=== PATIENT | female | born 1980 | race Caucasian/White ===

== ENCOUNTER 2017-08-05 20:23 | Emergency (ER) | payer OTHER ==
[2017-08-05] MEDS: MUPIROCIN 2% 22 GM OINT TOP (22:27)
== END 2017-08-05 23:25 | disposition home or self-care (01) ==
LOC: FTE 20:23
DX: L02.211 Cutaneous abscess of abdominal wall (principal)
CPT/HCPCS: 10061; 99283-25

== ENCOUNTER 2017-09-21 23:04 | Emergency (ER) | payer OTHER ==
[2017-09-22] MEDS: DIPHENHYDRAMINE 25 MG CAP PO (00:45)
[2017-09-22 00:50] LABS: ADD MAN DIFF? NO
[2017-09-22 01:18] LABS: WHITE BLOOD COUNT 15.8 10^3/ul (4.8-10.8)
[2017-09-22 01:18] LABS: ABNORMAL IP MESSAGE 1; BASOPHIL # 0.1 10^3/ul (0.0-0.1); BASOPHILS % 0.8 % (0.0-2.0); EOSINOPHILS % 25.4 % (0.0-7.0); HEMATOCRIT 45.5 % (37.0-47.0); HEMOGLOBIN 14.5 g/dl (12.0-16.0); LYMPHOCYTES % 25.3 % (15.0-51.0); MEAN CORPUSCULAR HEMOGLOBIN 25.3 pg (29.0-33.0); MEAN CORPUSCULAR HGB CONC 31.9 g/dl (32.0-37.0); MEAN CORPUSCULAR VOLUME 79.3 fl (82.0-101.0); MEAN PLATELET VOLUME 13.9 fl (7.4-10.4); MONOCYTE # 1.6 10^3/ul (0.3-0.9); MONOCYTES % 10.2 % (0.0-11.0); NEUTROPHILS % 37.9 % (39.0-77.0); PLATELET COUNT 93 10^3/UL (140-415); RED BLOOD COUNT 5.74 10^6/ul (4.20-5.40); RED CELL DISTRIBUTION WIDTH 14.6 % (11.5-14.5)
[2017-09-22 01:27] LABS: POSITIVE DIFF @See below
[2017-09-22 01:30] LABS: ALANINE AMINOTRANSFERASE 43 IU/L (13-69); ALBUMIN 3.8 g/dl (3.3-4.9); ALBUMIN/GLOBULIN RATIO 1.52; ALKALINE PHOSPHATASE 125 IU/L (42-121); ANION GAP 16 (8-16); ASPARTATE AMINO TRANSFERASE 19 IU/L (15-46); BILIRUBIN,INDIRECT 0.2 mg/dl (0-1.1); BILIRUBIN,TOTAL 0.2 mg/dl (0.2-1.3); BLOOD UREA NITROGEN 11 mg/dl (7-20); CALCIUM 9.1 mg/dl (8.4-10.2); CARBON DIOXIDE 25 mmol/L (21-31); CHLORIDE 102 mmol/L (97-110); CREATININE 0.47 mg/dl (0.44-1.00); GLUCOSE 315 mg/dl (70-220); POTASSIUM 3.9 mmol/L (3.5-5.1); SODIUM 139 mmol/L (135-144); TOTAL PROTEIN 6.3 g/dl (6.1-8.1)
== END 2017-09-22 02:25 | disposition home or self-care (01) ==
LOC: FTE 23:04
DX: L50.9 Urticaria, unspecified (principal); R73.9 Hyperglycemia, unspecified
CPT/HCPCS: 36415; 80053; 85025; 99284

== ENCOUNTER 2017-11-02 18:38 | Emergency (ER) | payer OTHER ==
[2017-11-02 20:49] LABS: URINE BLOOD (Dip) POC Negative (NEGATIVE); URINE KETONES (Dip) POC Trace (NEGATIVE); URINE LEUKOCYTE EST (Dip) POC Negative (NEGATIVE); URINE NITRITE (Dip) POC Negative (NEGATIVE); URINE TOTAL PROTEIN POC 1+ (NEGATIVE)
[2017-11-02 21:20] LABS: ADD MAN DIFF? NO
[2017-11-02] MEDS: morphine 4 MG/ML VIAL IV (21:21)
[2017-11-02] MEDS: ONDANSETRON 4 MG INJ IV (21:21)
[2017-11-02 21:22] LABS: ABNORMAL IP MESSAGE 1; BASOPHIL # 0.1 10^3/ul (0.0-0.1); BASOPHILS % 0.8 % (0.0-2.0); EOSINOPHILS % 22.1 % (0.0-7.0); HEMATOCRIT 47.8 % (37.0-47.0); HEMOGLOBIN 15.5 g/dl (12.0-16.0); LYMPHOCYTES # 4.3 10^3/ul (0.8-2.9); LYMPHOCYTES % 23.9 % (15.0-51.0); MEAN CORPUSCULAR HEMOGLOBIN 25.9 pg (29.0-33.0); MEAN CORPUSCULAR HGB CONC 32.4 g/dl (32.0-37.0); MEAN CORPUSCULAR VOLUME 79.8 fl (82.0-101.0); MEAN PLATELET VOLUME 13.5 fl (7.4-10.4); MONOCYTE # 1.5 10^3/ul (0.3-0.9); MONOCYTES % 8.3 % (0.0-11.0); NEUTROPHILS % 44.5 % (39.0-77.0); PLATELET COUNT 121 10^3/UL (140-415); RED BLOOD COUNT 5.99 10^6/ul (4.20-5.40); RED CELL DISTRIBUTION WIDTH 15.1 % (11.5-14.5)
[2017-11-02 21:22] LABS: WHITE BLOOD COUNT 17.9 10^3/ul (4.8-10.8)
[2017-11-02] MEDS: SOD CHLORIDE 0.9% 1,000 ML IV (21:22)
[2017-11-02] MEDS: CLINDAMYCIN 300 MG/D5W (PMX) 50 ML IVPB (21:35)
[2017-11-02 21:37] LABS: POSITIVE DIFF @See below
[2017-11-02 21:41] LABS: ANION GAP 12 (8-16); BLOOD UREA NITROGEN 10 mg/dl (7-20); CARBON DIOXIDE 25 mmol/L (21-31); CHLORIDE 106 mmol/L (97-110); CREATININE 0.46 mg/dl (0.44-1.00); GLUCOSE 233 mg/dl (70-220); POTASSIUM 3.8 mmol/L (3.5-5.1); SODIUM 139 mmol/L (135-144)
[2017-11-02] MEDS: LIDOCAINE 1% (MDV) 20 ML INJ SC (21:53)
[2017-11-02] MEDS: KETOROLAC 30 MG INJ IV (22:20)
== END 2017-11-02 22:34 | disposition home or self-care (01) ==
LOC: FTE 18:38
DX: K04.7 Periapical abscess without sinus (principal); E03.9 Hypothyroidism, unspecified; Z79.84 Long term (current) use of oral hypoglycemic drugs
CPT/HCPCS: 80048; 81003; 81025; 85025; 96374; 96375; 99284-25

== ENCOUNTER 2018-08-08 22:13 | Emergency (ER) | payer OTHER | END 2018-08-09 01:22 | disposition home or self-care (01) | LOC: FTE 22:13 | DX: R21 Rash and other nonspecific skin eruption (principal) | CPT/HCPCS: 99282; Z7502 ==

== ENCOUNTER 2018-11-19 21:03 | Emergency (ER) | payer OTHER | END 2018-11-19 23:03 | disposition home or self-care (01) | LOC: FTE 21:03 | DX: L29.9 Pruritus, unspecified (principal); Z79.84 Long term (current) use of oral hypoglycemic drugs | CPT/HCPCS: 99283; Z7502 ==